=== PATIENT | female | born 1965 | race Caucasian/White ===

== ENCOUNTER → 2017-05-31 07:49 | Outpatient (CLI) | payer MEDICAID | END | disposition home or self-care (01) | LOC: D.MRI 07:49 | DX: N28.89 Other specified disorders of kidney and ureter (principal) ==

== ENCOUNTER → 2017-06-10 08:30 | Outpatient (CLI) | payer MEDICAID ==
[2017-06-10 09:06] LABS: BASOPHILS 0.3 % (0-2); HEMATOCRIT 43.8 % (36.0-48.0); HEMOGLOBIN 15.5 g/dL (12-16); IMMATURE GRANULOCYTES 0.3 % (0-5); LYMPHOCYTES 30.2 % (15-50); MCH 31.3 pg (26.0-34.0); MCHC 35.4 g/dL (31.0-37.0); MCV 88.3 fL (80.0-100.0); MONOCYTES 6.3 % (2-11); NEUTROPHILS 61.9 % (40-80); PLATELET COUNT 395 10x3/uL (130-400); RBC 4.96 10x6/uL (4.00-5.40); RDW 13.3 % (11.5-14.5); WBC 10.1 10x3/uL (4.8-10.8)
[2017-06-10 09:16] LABS: ALBUMIN 3.6 g/dL (3.4-5.0); ANION GAP 15.1 mmol/L (8-16); BILIRUBIN - DIRECT 0.06 mg/dL (0.00-0.30); BILIRUBIN - INDIRECT 0.14 mg/dL (0.00-1.00); BILIRUBIN - TOTAL 0.2 mg/dL (0.2-1.3); CALCIUM 9.4 mg/dL (8.5-10.1); CARBON DIOXIDE 24.2 mmol/L (21.0-32.0); CREATININE - SERUM 0.9 mg/dL (0.6-1.3); POTASSIUM - SERUM 4.3 mmol/L (3.5-5.1); PROTEIN - SERUM 7.8 g/dL (6.4-8.2)
== END | disposition home or self-care (01) ==
LOC: D.NM 06-06 08:30
PROVIDERS: Urology
DX: N28.89 Other specified disorders of kidney and ureter (principal)

== ENCOUNTER → 2017-06-14 08:08 | Outpatient (CLI) | payer MEDICAID ==
[~2017-06-14 08:08] MED LIST: GABAPENTIN100 MG PO; GLUCOTROL 5 MG T5 MG PO; XYLOCAINE HCL 2%5 ML UR; ZESTORETIC 20-1 EACH PO
== END | disposition home or self-care (01) ==
LOC: D.NM 08:08
DX: N28.89 Other specified disorders of kidney and ureter (principal)

== ENCOUNTER 2017-06-17 08:11 | Outpatient (CLI) | payer MEDICAID ==
[2017-06-17] MEDS ORDERED: GABAPENTIN100 MG PO (09:13)
[2017-06-17] MEDS ORDERED: GLUCOTROL 5 MG T5 MG PO (09:13)
[2017-06-17] MEDS ORDERED: ZESTORETIC 20-1 EACH PO (09:14)
[2017-06-17] MEDS ORDERED: XYLOCAINE HCL 2%5 ML UR (09:15)
[2017-06-17 09:24] VITALS: BP 100/64; BMI 31.1
[2017-06-17 09:56] LABS: BASOPHILS 0.2 % (0-2); EOSINOPHILS 1.1 % (0-7); HEMATOCRIT 41.6 % (36.0-48.0); HEMOGLOBIN 14.5 g/dL (12-16); IMMATURE GRANULOCYTES 0.3 % (0-5); LYMPHOCYTES 27.2 % (15-50); MCH 30.7 pg (26.0-34.0); MCHC 34.9 g/dL (31.0-37.0); MCV 87.9 fL (80.0-100.0); MEAN PLATELET VOLUME 9.1 fL (7.4-10.4); MONOCYTES 6.6 % (2-11); NEUTROPHILS 64.6 % (40-80); PLATELET COUNT 328 10x3/uL (130-400); RBC 4.73 10x6/uL (4.00-5.40); RDW 13.2 % (11.5-14.5); WBC 11.3 10x3/uL (4.8-10.8)
[2017-06-17 10:04] LABS: CALC OSMOLALITY 279 mosm/kg (275-300); CALCIUM 9.2 mg/dL (8.5-10.1); CHLORIDE - SERUM 100 mmol/L (98-107); CREATININE - SERUM 0.7 mg/dL (0.6-1.3); POTASSIUM - SERUM 4.1 mmol/L (3.5-5.1); SODIUM 135 mmol/L (136-145); UREA NITROGEN 18 mg/dL (7-18); eGFR NON AFRICAN AMERICAN > 90 mL/min (90-120)
[2017-06-17 10:06] LABS: GLUCOSE 248 mg/dL (74-106)
[2017-06-17 11:18] LABS: APTT 31.7 SECONDS (22.8-39.4); INR 0.93 (0.85-1.17); PROTIME 12.3 SECONDS (11.6-15.0)
--- NOTE | 2017-06-17 14:19 | NUR ---
1340- RECEIVED REPORT FROM DMITRI Banuelos RN. PT RESTING IN RLAT POSITION. BEDREST AT THIS TIME. AT BEDSIDE. VSS. SEE VITAL SIGN CHECKSHEET FOR VITAL SIGNS. DRESSING TO LEFT MIDDLE BACK- C/D/I. WILL MONITOR.
--- NOTE | 2017-06-17 15:47 | NUR ---
1430-PT UP TO BR WITH X1 ASSIST. VOIDED WITHOUT DIFFICULTY. 1455- VSS. RESTING WITH HOB ELEVATED. DRESSING C/D/I. 1535- IV D/C'D, PT TOLERATED. CATHETER INTACT. 1540- DISCHARG INSTRUCTIONS COMPLETED, PAPERWORK SIGNED. PT VERBALIZED UNDERSTANDING. 1545- PT DISCHARGED VIA WHEELCHAIR WITH .
== END 2017-06-17 15:45 | disposition home or self-care (01) ==
LOC: D.OPS 08:11 → D.RAD 11:00 → D.OPS 11:00
PROVIDERS: Radiology Diagnostic Radiology
DX: C64.2 Malignant neoplasm of left kidney, except renal pelvis (principal); N39.3 Stress incontinence (female) (male); F17.200 Nicotine dependence, unspecified, uncomplicated; Z01.812 Encounter for preprocedural laboratory examination

== ENCOUNTER 2017-07-05 06:08 | Day surgery (SDC) | payer MEDICAID ==
[2017-07-02 12:01] LABS: HEMATOCRIT 41.4 % (36.0-48.0); HEMOGLOBIN 14.4 g/dL (12-16); MCH 31.4 pg (26.0-34.0); MCHC 34.8 g/dL (31.0-37.0); MCV 90.4 fL (80.0-100.0); RBC 4.58 10x6/uL (4.00-5.40); RDW 13.5 % (11.5-14.5)
[2017-07-02 12:11] VITALS: BP 104/66; BMI 27.5
[2017-07-02 12:12] LABS: CALC OSMOLALITY 274 mosm/kg (275-300); CARBON DIOXIDE 26.1 mmol/L (21.0-32.0); CHLORIDE - SERUM 100 mmol/L (98-107); CREATININE - SERUM 0.6 mg/dL (0.6-1.3); SODIUM 135 mmol/L (136-145); UREA NITROGEN 14 mg/dL (7-18); eGFR NON AFRICAN AMERICAN > 90 mL/min (90-120)
[2017-07-02 12:13] LABS: GLUCOSE 179 mg/dL (74-106)
[2017-07-05 06:34] VITALS: BP 110/61; BMI 31.1
--- NOTE | 2017-07-05 10:09 | OP ---
PATIENT NAME: XUAN HEATH MEDICAL RECORD: [id number] :69 LOCATION:D[facility] ADMISSION DATE: SURGEON: RICKY THORPE MD DATE OF OPERATION: 07/05/2017 SURGEON: Ricky Thorpe MD ANESTHESIA: General anesthesia by Al Deng CRNA. PREOPERATIVE DIAGNOSIS: Left renal cell carcinoma. POSTOPERATIVE DIAGNOSIS: Left renal cell carcinoma. PROCEDURE: Cystoscopy, left retrograde pyelogram, left ureteral stent insertion 6-Luxembourger x 24 cm with string attached. FINDINGS: On retrograde pyelogram, no hydronephrosis, no filling defects. Findings on cystoscopy, single ureteral orifices bilaterally. No bladder tumors. ESTIMATED BLOOD LOSS: None. CLINICAL HISTORY: This is a 52-year-old female, who continues to smoke half a pack per day. A few years ago, she was diagnosed with left renal cell carcinoma and she had a left partial nephrectomy done by urologist in [place]. She has been found to have a recurrence of a mass in the left medial portion of the kidney. Because of its location, it is not amenable to a partial nephrectomy. It has been biopsied and it came back as renal cell carcinoma. She is trying to have cryotherapy of this mass. However, due to hilar location of the radiologist performing cryotherapy requested insertion of a ureteral stent to better define the location of the ureter during his procedure. She will be having this procedure done at [facility] next week. She comes today to have the left ureteral stent inserted. She is not allergic to any medications. She was given Ancef 1 gram IV client onboarding analyst to the OR. DESCRIPTION OF PROCEDURE: The patient was given induction of general anesthesia. She was placed in the dorsal lithotomy position, prepped and draped. A 21-Luxembourger cystoscope with 30-degree lens was used for visualization. The findings are as outlined above. A 5-Luxembourger open-ended ureteral catheter was inserted into the left ureteral orifice and diluted contrast was injected. No filling defects were seen. The sensor wire was then inserted through the lumen of the ureteral catheter up into the renal pelvis. The ureteral catheter was then entirely removed, leaving the wire in place. Over the wire, we inserted stent. Once the stent was in correct position, the wire was withdrawn entirely. The stent was pushed into the bladder using a pusher. The string on the distal end of the stent is maintained. Once the scope was removed, the string was taped to the suprapubic area with a small piece of Tegaderm. TRANSINT:[id number] Voice Confirmation ID: [id number] DOCUMENT ID: [id number] OPERATIVE REPORT [id number] XUAN HEATH ROBERT S MD at 1009 CC: [id number] DICTATION DATE: 07/05/17820 SHUTTLER: 07/05/17 0841 [place] [id number] [place] [id number]
== END 2017-07-05 10:10 | disposition home or self-care (01) ==
LOC: D.OPS 06:08
PROVIDERS: Anesthesiology
DX: C64.2 Malignant neoplasm of left kidney, except renal pelvis (principal); Z01.812 Encounter for preprocedural laboratory examination

== ENCOUNTER → 2017-10-07 08:51 | Outpatient (CLI) | payer MEDICAID ==
[2017-10-07 10:07] LABS: CREATININE - SERUM 0.7 mg/dL (0.6-1.3)
== END | disposition home or self-care (01) ==
LOC: D.CT 08:51
PROVIDERS: Urology
DX: C64.9 Malignant neoplasm of unspecified kidney, except renal pelvis (principal)

== ENCOUNTER → 2019-05-12 07:39 | Outpatient (CLI) | payer MEDICAID ==
[~2019-05-12 07:39] MED LIST changes: +CELEXA10 MG PO; +HYDROCODON-ACE1 EA10 PO; +LYRICA50 MG PO; +PIOGLITAZONE15 MG PO; +PRINIVIL10 MG PO; +TYLENOL #4 W/CO1 TAB PO
[2019-05-12 09:17] LABS: CREATININE - SERUM 0.8 mg/dL (0.6-1.3)
== END | disposition home or self-care (01) ==
LOC: D.NM 07:39 → D.CT 14:00
PROVIDERS: ATTEND Urology
DX: C64.9 Malignant neoplasm of unspecified kidney, except renal pelvis (principal)

== ENCOUNTER 2019-05-26 13:51 | Inpatient (IN) | payer MEDICAID ==
[~2019-05-26] VITALS: Ht 157.5 cm; Wt 80.9 kg
[~2019-05-26 13:51] MED LIST changes: -CELEXA10 MG PO; -HYDROCODON-ACE1 EA10 PO; -LYRICA50 MG PO; -PIOGLITAZONE15 MG PO; -PRINIVIL10 MG PO; -TYLENOL #4 W/CO1 TAB PO
[2019-05-27] MEDS ORDERED: PIOGLITAZONE15 MG PO (12:53)
[2019-05-27] MEDS ORDERED: LYRICA50 MG PO (12:53)
[2019-05-27] MEDS ORDERED: CELEXA10 MG PO (12:54)
[2019-05-27] MEDS ORDERED: TYLENOL #4 W/CO1 TAB PO (12:54)
[2019-05-29] VITALS (9 sets, daily range): BP systolic 145–167; BP diastolic 83–105; Ht 157.5 cm; Wt 80.9 kg
[2019-05-29 09:38] LABS: BASOPHILS 0.3 % (0-2); EOSINOPHILS 1.7 % (0-7); HEMATOCRIT 39.8 % (36.0-48.0); HEMOGLOBIN 14.3 g/dL (12-16); IMMATURE GRANULOCYTES 0.1 % (0-5); INR 0.97 (0.85-1.17); LYMPHOCYTES 39.7 % (15-50); MCH 31.5 pg (26.0-34.0); MCHC 35.9 g/dL (31.0-37.0); MCV 87.7 fL (80.0-100.0); MEAN PLATELET VOLUME 8.8 fL (7.4-10.4); MONOCYTES 7.7 % (2-11); NEUTROPHILS 50.5 % (40-80); PLATELET COUNT 302 10x3/uL (130-400); PROTIME 12.4 SECONDS (11.6-15.0); RBC 4.54 10x6/uL (4.00-5.40); RDW 13.4 % (11.5-14.5); WBC 7.5 10x3/uL (4.8-10.8)
[2019-05-29 09:39] LABS: APTT 32.5 SECONDS (22.8-39.4)
[2019-05-29 11:11] LABS: CALC OSMOLALITY 280 mosm/kg (275-300); CALCIUM 8.8 mg/dL (8.5-10.1); CARBON DIOXIDE 31.2 mmol/L (21.0-32.0); CHLORIDE - SERUM 104 mmol/L (98-107); CREATININE - SERUM 0.7 mg/dL (0.6-1.3); GLUCOSE 167 mg/dL (74-106); POTASSIUM - SERUM 4.1 mmol/L (3.5-5.1); SODIUM 138 mmol/L (136-145); UREA NITROGEN 16 mg/dL (7-18); eGFR NON AFRICAN AMERICAN > 90 mL/min (90-120)
--- NOTE | 2019-05-29 16:16 | NUR ---
CVP ETC NOT IN HOLDING BUT OR 5
--- NOTE | 2019-05-29 18:27 | NUR ---
REC'D PT TO ICU. ALL MONITORING EQUIPMENT ATTACHED AND ALARMS SET. CXR FOR CVL PLACEMENT COMPLETE.
--- NOTE | 2019-05-29 18:36 | NUR ---
INSTRUCTED USE OF EPIDURAL HOSPITAL HOUSEKEEPER.
--- NOTE | 2019-05-29 19:20 | NUR ---
BEDSIDE SHIFT REPORT COMPLETED. VSS - PATIENT IN PAIN ASSESSED NUMERIC SCALE, PATIENT STATED 8 OUT OF 10 - ON PAIN SCALE EPIDURAL NOTED IN POSITION INSTRUCTED PATIENT ON PASSENGER COACH DRIVER USE. REMINDED HER TO PUSH THE BUTTON TO AVOID BREAK THROUGH PAIN. FAMILY IN WAITING ROOM, ASSISTED BACK TO ROOM AND INSTRUCTED ON PLAN OF CARE AND VISITING HOURS, TO STAY IN WAITING ROOM UNLESS IT IS VISITING HOURS. ADMISSION ASSESSMENT COMPLETED AT THIS TIME. WILL DO MED REVIEW WHEN RETURNS FOR VISITING HOURS.
--- NOTE | 2019-05-29 19:57 | NUR ---
PATIENT REQUESTING WATER - ORDER CLEAR LIQUID DIET ADVANCE TOLERATED. PROVIDED PATIENT WITH ICE WATER AND INSTRUCTED HER TO TAKE SMALL SIPS- NO COUGH AFTER DRINKING. PT DENIES FEELING CHOKED VSS CPOC
--- NOTE | 2019-05-29 22:03 | NUR ---
PAGED ANESTHESIA REGARDING PATIENT PERSISTENT PAIN DESPITE PAIN MANAGEMENT EDUCATION DEMETRIO CALLED BACK STATED SHE WILL COME TO BEDSIDE TO ASSESS
--- NOTE | 2019-05-29 22:30 | NUR ---
ANESTHESIA AT BEDSIDE.
--- NOTE | 2019-05-29 23:30 | NUR ---
REASSESSMENT COMPLETED SEE FLOWSHEET. PT STATES PAIN 7 OUT OF 10 ON PAIN SCALE
[2019-05-30] VITALS (26 sets, daily range): BP systolic 129–164; BP diastolic 77–107
--- NOTE | 2019-05-30 03:30 | NUR ---
REASSESSMENT COMPLETED SEE FLOWSHEET
--- NOTE | 2019-05-30 05:44 | NUR ---
PATIENT RESTING COMFORTABLY - EYES CLOSED EVEN RISE AND FALL OF CHEST - VSS CPOC
--- NOTE | 2019-05-30 08:46 | OP ---
PATIENT NAME: XUAN HEATH MEDICAL RECORD: [id number] :69 LOCATION:[facility] D.2305 ADMISSION DATE:05/29/19 SURGEON: JILLIAN THORPE MD DATE OF OPERATION: 05/29/2019 CO-SURGEONS: Jillian Maloney MD and Jillian Thorpe MD ANESTHESIA: General anesthesia with epidural anesthesia by Molly Perez CRNA. DIAGNOSIS: Right lower pole solid, enhancing renal mass, 2.4 cm in size. This mass is highly suspicious for renal cell carcinoma. PROCEDURES: Hand-assisted laparoscopic right radical nephrectomy. BLOOD LOSS: Less than 100 mL. SPECIMENS: Right kidney, adrenal, and ureter. CLINICAL HISTORY: This is a 53-year-old female, who was a heavy smoker. She has a history of kidney cancer. I saw her in June 2017 when she had a biopsy positive right renal cell carcinoma near the hilum of the kidney. This was treated with cryotherapy. Another urologist had performed an open left partial nephrectomy of an upper pole renal cell carcinoma. She recently quit smoking. However, on followup imaging done in [place], [place], an enhancing solid renal mass was seen in the lower pole. This is intraparenchymal and it extends to the collecting system. It is 2.4 cm in size. An MRI was performed and this confirmed that the lower pole lesion was highly suspicious for renal cell carcinoma. She had a metastatic workup including CT scan of the chest and whole body bone scan. Metastatic workup was negative for metastasis. The CT scan of the chest did note a mass in the right adrenal gland which is suspicious for a possible metastatic disease. She comes today for a right radical nephrectomy performed laparoscopically. She is aware that we may have to resort open surgery if there is a problem with the laparoscopic approach. I was concerned that because of her previous left upper pole nephrectomy that she may be absent of any adrenal glands after the surgery. She was given Solu-Medrol 120 mg IV to prevent an Addisonian crisis post-op. In the meantime, I reviewed the CT scan imaging and I do see the left adrenal gland to be present. It has a small adenoma within it also. Therefore, we will not need to continue with steroid replacement therapy postoperatively. DESCRIPTION OF PROCEDURE: The patient was given induction of general anesthesia after having been given an epidural catheter. She was in supine position. She was then placed into the lateral decubitus position with the right side up. She was placed at about a 45-degree angle. A 7.5 cm Painting incision was made in the right lower quadrant. We went down with the muscle splitting approach into the peritoneal cavity. The Gelport hand access port was placed. A 12-[place] port was placed through the Gelport in order to allow the pneumoperitoneum to form. We kept the pressure to about 15 mmHg. Under direct vision, a working port was placed at the level of the umbilicus. A 12-mm port was placed here. Longterm between the xiphoid process and the umbilicus, another 12-mm port was placed in the midline of the Abdomen for our camera. Finally, we used a 5-mm port to place our liver retractor. The actual surgery consisted of a mobilization of the peritoneum lateral to the colon along the white line of Toldt. We went from the hepatic flexure all the way down to the iliac crest. The colon was then OPERATIVE REPORT [id number] XUAN HEATH moved inferiorly and medially away from the anterior surface of the kidney. We also started to dissect the hepatorenal ligament and free the lateral corner of the kidney from the undersurface of the liver. We continued to work this way medially and the plane between the kidney and the liver, trying to keep Gerota's fascia intact. Once the colon had been fully mobilized off the anterior surface of the kidney, we then went from lateral to medial along the lower pole of the kidney. We encountered the ureter. This was cleaned off and 4 clips were placed on it. In between the 2 middle clips, we used the Metzenbaum scissors to divide the ureter. Going further medially, we encountered the duodenum. Metzenbaum scissors were used to kocherize the duodenum to move it away towards the left side of the abdomen. This uncovered the inferior vena cava. By continuing to dissect posteriorly to the kidney and inferiorly to the kidney, we could then come up from inferior heading towards the superior pole to dissect the hilum of the kidney. An Endo-JAIDEN 45 with vascular staple load was used to divide the hilum and renal vascular pedicle. We did want to keep the adrenal gland with the kidney as there was a question of a metastatic disease within the adrenal gland. By continuing to use the endovascular JAIDEN stapler, we managed to completely free the medial surface of the kidney away from the inferior vena cava. Finally, we used the endovascular JAIDEN stapler to enter into the plane between the undersurface of the liver and the superior surface of the adrenal gland and the kidney. Going through this plane, the entire superior surface of the kidney was then freed. The kidney was only held by a few adhesive bands posteriorly. These were taken down with the Harmonic scalpel and the entire specimen was free. The kidney was sent to pathology in formalin. We placed a Surgicel Nu-Knit on the renal pedicle. No bleeding was seen. The Gelport hand access port top was removed and we ran the bowel in the area to make sure there was no injury to the bowel. No injury was noted. A Gabriele-Conrado device was used to close the fascia for the camera port in between the xiphoid and the umbilicus. A 2-0 Vicryl suture was used to close the fascia. It was very difficult because of the oblique angle to get the Gabriele-Conrado device through the umbilical fascia. We decided to leave this part alone. The Gelport was then removed entirely. The fascia was closed using looped 0 PDS. [place] were used to close all the skin incisions. Dressings were applied. She does have a Raymond catheter, which we used for monitoring of fluid output postoperatively. The patient was awakened and brought to the recovery room. TRANSINT:[id number] Voice Confirmation ID: [id number] DOCUMENT ID: [id number] JILLIAN THORPE MD at 0846 CC: [id number] DICTATION DATE: 05/29/191737 PLASMA PROCESSING CENTRIFUGE OPERATOR: 05/29/199 ADM IN [place] [id number] [place] [id number]
[2019-05-30] MEDS ORDERED: PRINIVIL10 MG PO (09:43)
[2019-05-30 14:01] LABS: BASOPHILS 0.1 % (0-2); EOSINOPHILS 0.1 % (0-7); HEMATOCRIT 33.3 % (36.0-48.0); HEMOGLOBIN 11.9 g/dL (12-16); IMMATURE GRANULOCYTES 0.3 % (0-5); LYMPHOCYTES 13.6 % (15-50); MCH 31.2 pg (26.0-34.0); MCHC 35.7 g/dL (31.0-37.0); MCV 87.4 fL (80.0-100.0); MEAN PLATELET VOLUME 8.8 fL (7.4-10.4); MONOCYTES 8.5 % (2-11); NEUTROPHILS 77.4 % (40-80); PLATELET COUNT 267 10x3/uL (130-400); RBC 3.81 10x6/uL (4.00-5.40)
[2019-05-30 14:05] LABS: WBC 18.2 10x3/uL (4.8-10.8)
[2019-05-30 14:37] LABS: ANION GAP 12.2 mmol/L (8-16); CALCIUM 8.2 mg/dL (8.5-10.1); CARBON DIOXIDE 21.8 mmol/L (21.0-32.0); CREATININE - SERUM 0.9 mg/dL (0.6-1.3)
--- NOTE | 2019-05-30 19:05 | NUR ---
shift assessment completed see flowsheet. patient states PAIN IS 4 ON AN NUMERIC PAIN SCALE. EPIDURAL SITE CLEAN DRY AND INTACT. VSS CPOC
--- NOTE | 2019-05-30 20:04 | NUR ---
PAGED ANESTHESIA REGARDING AMOUNT OF MEDICATION LEFT IN EPIDURAL PUMP AWAITING CALL BACK
--- NOTE | 2019-05-30 20:06 | NUR ---
DEMETRIO STEWARD CALLED BACK, NOTIFIED OF PUMP STATUS
--- NOTE | 2019-05-30 20:33 | NUR ---
AT BEDSIDE, PATIENT CO PAIN 6/10 ON PAIN SCALE, INSTRUCTED ABOUT BREAK THROUGH PAIN. PATIENT WAS SLEEPING AND NOT USING BUTTON FOR A GOOD LONG WHILE. VSS CPOC
--- NOTE | 2019-05-30 20:42 | NUR ---
ANESTHESIA AT BEDSIDE AT THIS TIME
--- NOTE | 2019-05-30 23:32 | NUR ---
REASSESSMENT COMPLETED SEE FLOWSHEET
[2019-05-31] VITALS (18 sets, daily range): BP systolic 108–174; BP diastolic 68–103
--- NOTE | 2019-05-31 01:41 | NUR ---
PT RECEIVED HIBICLEANSE BATH TOLERATED WELL. PAIN AT A 6 AFTER BATH. CEDENO CARE COMPLETED AT THIS TIME. SCDS ON - ALL MONITORS AND ALARMS ON AND FUNCTIONING. NOTED HEMATURIA IN CEDENO CATH - APPROX 50 CC - VSS CPOC
--- NOTE | 2019-05-31 01:47 | NUR ---
PAGED BEAMER HAND REGARDING NEW PATIENT FINDING
--- NOTE | 2019-05-31 01:52 | NUR ---
DR. JOY RETURNED CALL NEW ORDERS RECEIVED
--- NOTE | 2019-05-31 02:08 | NUR ---
BLOOD DRAWN PER PROTOCOL FROM CENTRAL LINE AND DELIVERED TO LAB AT THIS TIME
[2019-05-31 02:13] LABS: BASOPHILS 0.1 % (0-2); EOSINOPHILS 0.3 % (0-7); HEMATOCRIT 31.6 % (36.0-48.0); HEMOGLOBIN 10.9 g/dL (12-16); IMMATURE GRANULOCYTES 0.2 % (0-5); LYMPHOCYTES 14.3 % (15-50); MCH 30.4 pg (26.0-34.0); MCHC 34.5 g/dL (31.0-37.0); MEAN PLATELET VOLUME 8.8 fL (7.4-10.4); MONOCYTES 10.1 % (2-11); PLATELET COUNT 231 10x3/uL (130-400); RBC 3.59 10x6/uL (4.00-5.40); RDW 13.7 % (11.5-14.5)
[2019-05-31 02:14] LABS: WBC 13.5 10x3/uL (4.8-10.8)
[2019-05-31 02:19] LABS: ANION GAP 9.1 mmol/L (8-16); CALCIUM 7.8 mg/dL (8.5-10.1); CARBON DIOXIDE 24.7 mmol/L (21.0-32.0); POTASSIUM - SERUM 3.8 mmol/L (3.5-5.1)
[2019-05-31 02:20] LABS: APTT 31.9 SECONDS (22.8-39.4); INR 1.15 (0.85-1.17); PROTIME 14.2 SECONDS (11.6-15.0)
--- NOTE | 2019-05-31 02:55 | NUR ---
REASSESSMENT COMPLETED SEE FLOWSHEET
--- NOTE | 2019-05-31 05:32 | NUR ---
PT RESTING IN BED WITH EYES CLOSED, VSS, NO VISITORS PRESENT, CONT POC.
--- NOTE | 2019-05-31 16:17 | NUR ---
1600: CALLED IN TO ROOM. CRYING. WANTING TO KNOW IF SHE WAS GOING TO GET HER EPIDURAL AND BE ABLE TO TRANFER TO REG ROOM. UNABLE TO ANSWER HER QUESTIONS. 1607: PAGE PLACED OUT TO DR. THORPE BY ANSWERING SERVICE.
--- NOTE | 2019-05-31 16:57 | NUR ---
1645: DR. THORPE RETURNED CALLED. NEW ORDERS REC'D. 1649: DEMETRIO LARSON WITH ANESTHESIA NOTIFIED TO COME DC EPIDURAL.
--- NOTE | 2019-05-31 17:42 | NUR ---
1715: TIA DC'D. 1720: WILIAN DC'D. 1725: ANESTHESIA HERE. EPIDURAL DC'D. DR. THORPE HERE. DISCHARGE ORDERS REC'D. 1730: R KARLEE DC'D. SITE DRESSED WITH 2X2 AND BANDAGE.
--- NOTE | 2019-05-31 18:30 | NUR ---
REPORT CALLED TO CARL.
--- NOTE | 2019-05-31 20:00 | NUR ---
RECIEVED TO ROOM FROM ICU VIA W/C, ALERT AND ORIENTIATED ACCOUMPIED BY , ORIENTIATED TO ROOM CALL LIGHT IN REACH, DENIES PAIN OR NEEDS AT THIS TIME ABD INCISION INTACT WITH KAVITA OPEN TO AIR, LAP SITES WITH BANDAIDS INTACT, STATES KNOWS SHE HAS DISCHARGE ORDERS BUT WANTS TO STAY TILL MORNING LIVES OUT OF TOWN, SEE SHIFT ASSESSMENT, CALL LIGHT IN REACH
[2019-06-01] VITALS: BP 167/86
[2019-06-01 04:30] VITALS: BP 170/98
--- NOTE | 2019-06-01 07:56 | NUR ---
PATIENT IS SITTING UP IN CHAIR AND HER IS IN HER BED. SHE SAYS SHE IS READY TO GO HOME TODAY. WILL CHECK ORDERS .
[2019-06-01 08:30] VITALS: BP 118/47; BP 182/99
[2019-06-01] MEDS ORDERED: HYDROCODON-ACE1 EA10 PO (08:50)
--- NOTE | 2019-06-01 09:23 | NUR ---
PATIENT DISCHARGE HAS BEEN DONE, PAPERS SIGNED, EDUCATION COMPLETED. PATIENT DOES NOT HAVE AN IV, AND SHE DOES NOT HAVE TELEMETRY ON. HER IS AT BEDSIDE AND IS HELPING HER GET ALL HER PERSONAL ITEMS PACKED UP. ALL PERSONAL ITEMS REMOVED FROM THE ROOM, SHE IS GOING DOWNSTAIRS BY WHEELCHAIR, AND GO HOME WITH A FAMILY MEMBER. WRITTEN PERSCRIPTION FOR NORCO GIVEN TO THE PATIENT BY DR THORPE.
--- NOTE | 2019-06-02 08:32 | MORECARE ---
CASE MANAGEMENT DISCHARGE SUMMARY PATIENT: XUAN HEATH UNIT: [id number] ADM DATE: 05/29/19 AGE: 54 : [birth year] SEX: F ROOM/BED: D.2104 AUTHOR: BRIAN VANESSA PHYSICIAN: REFERRING PHYSICIAN: JILLIAN THORPE MD DATE OF SERVICE: 06/02/19 Discharge Plan Patient Name: XUAN HEATH Facility: [facility]:[place] : 1965 Planned Disposition: Home Anticipated Discharge Date: 06/02/19 Discharge Date: 06/01/2019 Expected LOS: 4 Initial Reviewer: [email or web address] Initial Review Date: 06/02/2019 Generated: 06/02/19 9:32 am Patient Name: XUAN HEATH Page [phone] at 0832 All edits/amendments must be made on the electronic document DICTATION DATE: 06/02/19 0832 CHISEL GRINDER: SEEMA 06/02/19 0832 RPT#: [id number] DC DATE:06/01/19 STATUS: DIS IN [facility] [address] [place] [id number] END OF REPORT
--- NOTE | 2019-06-02 14:32 | OP ---
PATIENT NAME: XUAN HEATH MEDICAL RECORD: [id number] :69 LOCATION:D.M2 D.2104 ADMISSION DATE:05/29/19 SURGEON: JILLIAN JOY MD DATE OF OPERATION: 05/29/2019 This is a cosurgeon case. The urologist is Dr. Jillian Estevez. The general surgeon was Dr. Jillian Joy. PREOPERATIVE DIAGNOSIS: Right lower pole solid, enhancing renal mass, 2.4 cm in size, highly suspicious for renal cell carcinoma. POSTOPERATIVE DIAGNOSIS: Right lower pole solid, enhancing renal mass, 2.4 cm in size, highly suspicious for renal cell carcinoma. PROCEDURE: Hand-assisted laparoscopic right radical nephrectomy. BLOOD LOSS: Please see the anesthesia sheet. OPERATIVE COURSE: The patient was conveyed to the operating room electively on 05/29/2019. General anesthesia was induced by the anesthesia staff. The patient was placed in the lateral decubitus position with the right side up. Due to the complexity of the procedure, it was necessary to have 2 attending surgeons perform the procedure. I began while Dr. Estevez was performing the right lower quadrant incision. We used roughly a muscle technique to enter the peritoneal cavity. The external oblique aponeurosis was incised along the direction of its fibers. We ended up entering the peritoneal cavity along the lateral aspect of the rectus muscle. Dr. Estevez and I performed this portion of the procedure together. The Nolan retractor was placed by both of us. The GelPort was then applied on top of the Nolan retractor and through this, we insufflated. I placed 2 more trocars and these were 12-mm trocars. One was a working trocar and the other one was a trocar for the camera. In the right upper quadrant, I then placed a Rodri retractor through a small incision. The retractor was then positioned by me elevating the right lobe of the liver as well as the gallbladder and the lateral aspect of the left lobe of the liver. Essentially everything lateral to the falciform ligament. I took down the right white line of Toldt. I kocherized the duodenum. There was no damage to the colon including no thermal injury. I took down the hepatic flexure of the colon and followed this medially as well. We were able to both identify the inferior vena cava. This was undamaged during the procedure. I did some of the dissection at around the lateral aspect of the right kidney. I was able to identify initially a vascular structure, which might have been an ovarian vein. This was clipped multiply and divided between clips. I then identified the ureter, which was clipped multiply and divided between clips. We then continued our Harmonic scalpel dissection at the point where the peritoneal reflection and the liver meet underneath the liver. This was the superior aspect of our dissection. We encountered the right adrenal gland. We then thinned out some of the tissue around the hilum of the right kidney. I OPERATIVE REPORT [id number] XUAN HEATH did some of the stapling with the Endo-JAIDEN stapler utilizing white loads. This ligated and divided the renal veins as well as renal artery. We continued this dissection cephalad. At no time was there any caval injury. We then stapled cephalad to the adrenal gland with the Endo-JAIDEN stapler utilizing white loads. I did this as well. I was then able to remove the operative specimen. We placed a Nu-Knit into the peritoneal cavity. There was no bleeding, not even at low pressure. I ran accessible portion of the large and small bowel and identified no evidence of a bowel injury. The bowels were then placed into the peritoneal cavity. I examined with the laparoscopic television camera and noted no evidence of an injury. I then removed the Rodri retractor. Utilizing the Gabriele-Conrado suture closure device, the cephalad most 12-mm trocar site was closed with a 0 Vicryl suture. All the trocars were removed and the abdomen desufflated. The Nolan retractor was removed. The anterior fascia in the right lower quadrant was closed with a running looped 0 PDS. The skin at all the operative sites was closed with metallic clips. Sterile dressings were applied. The patient was then extubated and conveyed to the post-anesthesia care unit. The patient will be placed in the ICU overnight. TRANSINT:[id number] Voice Confirmation ID: [id number] DOCUMENT ID: [id number] 06/02/2019 Edited for stereoptician error, sd. JILLIAN JOY MD at 1432 CC: [id number] DICTATION DATE: 05/30/19 1153 MOTOR EQUIPMENT CAPTAIN: 05/30/19 1254 DIS IN 06/01/19 [facility] [address] [place] [address]
== END 2019-06-01 10:14 | disposition home or self-care (01) | DRG 658 ==
LOC: D.SDCHOLD 05-29 09:00 → D.M2 05-29 09:00 → D.SDCHOLD 05-29 11:15 → D.ICU 05-29 17:40 → D.M2 05-31 19:48
PROVIDERS: Anesthesiology; Surgery; ADMIT Urology; ATTEND Urology
PROC: 0TT00ZZ Resection of Right Kidney, Open Approach (ICD-10-PCS; principal; 2019-05-29 11:15)
DX: C64.1 Malignant neoplasm of right kidney, except renal pelvis (principal); Z87.891 Personal history of nicotine dependence; Z85.528 Personal history of other malignant neoplasm of kidney

== ENCOUNTER → 2019-06-08 13:29 | Outpatient (CLI) | payer MEDICAID ==
[2019-05-29 19:21] VITALS: BMI 32.3
[~2019-06-08 13:29] MED LIST changes: +CELEXA10 MG PO; +HYDROCODON-ACE1 EA10 PO; +LYRICA50 MG PO; +PIOGLITAZONE15 MG PO; +PRINIVIL10 MG PO; +TYLENOL #4 W/CO1 TAB PO
[2019-06-08 13:58] LABS: HEMATOCRIT 36.7 % (36.0-48.0); HEMOGLOBIN 12.6 g/dL (12-16); LYMPHOCYTES 36.2 % (15-50); MCH 30.4 pg (26.0-34.0); MCHC 34.3 g/dL (31.0-37.0); MCV 88.6 fL (80.0-100.0); MEAN PLATELET VOLUME 7.8 fL (7.4-10.4); NEUTROPHILS 61.5 % (40-80); RBC 4.14 10x6/uL (4.00-5.40); RDW 13.2 % (11.5-14.5); WBC 9.1 10x3/uL (4.8-10.8)
[2019-06-08 14:12] LABS: PLATELET COUNT 567 10x3/uL (130-400)
[2019-06-08 14:14] LABS: ANION GAP 13.1 mmol/L (8-16); CALCIUM 9.8 mg/dL (8.5-10.1); CARBON DIOXIDE 31.2 mmol/L (21.0-32.0); CREATININE - SERUM 1.1 mg/dL (0.6-1.3); POTASSIUM - SERUM 4.3 mmol/L (3.5-5.1)
== END | disposition home or self-care (01) ==
LOC: D.LAB 13:29
PROVIDERS: ATTEND Urology
DX: C64.9 Malignant neoplasm of unspecified kidney, except renal pelvis (principal)